=== PATIENT | male | born 1975 | race Caucasian/White ===

== ENCOUNTER 2016-04-17 16:55 | Emergency (ER) | payer SELFPAY ==
--- NOTE | 2016-04-17 17:03 | ER Document Report ---
ED Medical Screen (RME) - General Stated Complaint: TOOTH PAIN Time seen by provider: 17:15 Mode of Arrival: Ambulatory Information source: Patient Notes: 40-year-old male with reoccurring swelling due to dental abscess which started again last night. He was seen recently at [facility] and given clindamycin which seems to be upsetting his stomach. The swelling did go down until it reoccurred last night. There is mild trismus. I have greeted and performed a rapid initial assessment of this patient. A comprehensive ED assessment, evaluation of the patient, analysis of test results , and completion of the medical decision making process will be conducted by additional ED providers. TRAVEL OUTSIDE OF THE [place] IN LAST 30 DAYS: No - Related Data Allergies/Adverse Reactions: Penicillins Allergy (Verified 04/17/16 17:07) Past Medical History Past Surgical History: Reports: Hx Orthopedic Surgery - R KNEE - Immunizations Hx Diphtheria, Pertussis, Tetanus Vaccination: Yes - UTD Physical Exam - Vital signs Vitals: Temp Pulse Resp BP Pulse Ox 98.1 F 81 16 145/91 H 97 04/17/16 17:03 04/17/16 17:03 04/17/16 17:03 04/17/16 17:03 04/17/16 17:03 Course - Vital Signs Vital signs: Temp Pulse Resp BP Pulse Ox 98.1 F 81 16 145/91 H 97 04/17/16 17:03 04/17/16 17:03 04/17/16 17:03 04/17/16 17:03 04/17/16 17:03
[2016-04-17] MEDS ORDERED: ONDANSETRON 4 MG TAB.RAPDIS PO ONE (17:13)
[2016-04-17 17:39] LABS: ABSOLUTE EOSINOPHILS # (AUTO) 0.3 10^3/uL (0.0-0.6); ABSOLUTE LYMPHOCYTES (AUTO) 2.1 10^3/uL (0.5-4.7); ABSOLUTE MONOCYTES (AUTO) 1.2 10^3/uL (0.1-1.4); ABSOLUTE NEUT (AUTO) 11.9 10^3/uL (1.7-8.2); BASOPHILS % (AUTO) 0.2 % (0-2); EOSINOPHILS % (AUTO) 1.9 % (0-6); HEMATOCRIT 39.5 % (37.9-51.0); HEMOGLOBIN 13.5 g/dL (13.5-17.0); LYMPHOCYTES % (AUTO) 13.5 % (13-45); MEAN CORPUSCULAR HEMOGLOBIN 30.3 pg (27.0-33.4); MEAN CORPUSCULAR HGB CONC 34.2 g/dL (32.0-36.0); MEAN CORPUSCULAR VOLUME 89 fl (80-97); MONOCYTES % (AUTO) 7.8 % (3-13); RED BLOOD COUNT 4.47 10^6/uL (4.35-5.55); RED CELL DISTRIBUTION WIDTH 12.7 % (11.5-14.0); SEGMENTED NEUTROPHILS % (AUTO) 76.6 % (42-78); WHITE BLOOD COUNT 15.6 10^3/uL (4.0-10.5)
[2016-04-17 17:56] LABS: ALANINE AMINOTRANSFERASE 27 U/L (21-72); ALBUMIN 4.4 g/dL (3.5-5.0); ALKALINE PHOSPHATASE 58 U/L (38-126); ANION GAP 9 (5-19); ASPARTATE AMINO TRANSFERASE 19 U/L (17-59); BLOOD UREA NITROGEN 16 mg/dL (7-20); CALCIUM 9.9 mg/dL (8.4-10.2); CARBON DIOXIDE 30 mmol/L (22-30); CHLORIDE 102 mmol/L (98-107); CREATININE RESULT 1.07 mg/dL (0.52-1.25); GLUCOSE 112 mg/dL (75-110); POTASSIUM 4.7 mmol/L (3.6-5.0); TOTAL PROTEIN 7.2 g/dL (6.3-8.2)
[2016-04-17] MEDS ORDERED: CLINDAMYCIN 600 MG/D5W RTU 50 ML IV ONE (17:58)
[2016-04-17] MEDS ORDERED: HYDROMORPHONE HCL INJ/PF 2 MG/ML AMPULE IV ONE (17:59)
[2016-04-17] MEDS ORDERED: ONDANSETRON HCL INJ/PF 4 MG/2 ML SDV IV ONE (17:59)
[2016-04-17] MEDS ORDERED: METHYLPREDNISOLONE INJ 125 MG/2 ML SDV IV ONE (17:59)
[2016-04-17] MEDS ORDERED: LIDOCAINE 1%/EPINEPHRINE INJ 20 ML VIAL INJ ONE (18:00)
[2016-04-17] MEDS ORDERED: LIDOCAINE 1% INJ-PF (10 MG/ML) 30 ML SDV ONE (18:43)
--- NOTE | 2016-04-17 19:20 | ER Document Report ---
ED Oral Problem - General Chief Complaint: Toothache Stated Complaint: TOOTH PAIN Mode of Arrival: Ambulatory Notes: Patient has swelling of the left side of his face that began on Tuesday. He was seen at another emergency department on Tuesday where he was given clindamycin 300 mg 4 times a day and hydrocodone for pain. Patient says he's not been able to take the clindamycin as prescribed because it upsets his stomach. He says he's only had one antibiotic pill today and to yesterday. Swelling of the face has worsened today. Has not been running any fever. Has bad teeth. Can swallow without difficulty. Has difficulty completely opening his mouth, however. TRAVEL OUTSIDE OF THE [place] IN LAST 30 DAYS: No - Related Data Allergies/Adverse Reactions: Penicillins Allergy (Verified 04/17/16 17:07) Past Medical History - General Information source: Patient - Social History Smoking Status: Current Every Day Smoker Chew tobacco use (# tins/day): No Frequency of alcohol use: Rare Drug Abuse: None Family History: Reviewed & Not Pertinent Patient has suicidal ideation: No Patient has homicidal ideation: No Surgical Hx: Negative Past Surgical History: Reports: Hx Orthopedic Surgery - R KNEE - Immunizations Hx Diphtheria, Pertussis, Tetanus Vaccination: Yes - UTD Review of Systems - Review of Systems Constitutional: denies: Fever EENT: Mouth pain, Dental problem. denies: Eye pain, Eye discharge, Difficulty swallowing, Throat swelling, Mouth swelling Cardiovascular: denies: Chest pain Respiratory: denies: Cough, Short of breath, Wheezing Physical Exam - Vital signs Vitals: Temp Pulse Resp BP Pulse Ox 98.1 F 81 16 145/91 H 97 04/17/16 17:03 04/17/16 17:03 04/17/16 17:03 04/17/16 17:03 04/17/16 17:03 Interpretation: Normal - Notes Notes: PHYSICAL EXAMINATION: GENERAL: Well-appearing, in no acute distress. Vital signs are all normal. HEAD: Atraumatic, normocephalic. ENT: oropharynx clear without exudates. Moist mucous membranes. Notable swelling of the left side of the face, primarily over the left mandible. Very tender to touch. No drainage present. No impingement upon the airway or oral passage. NECK: Normal range of motion, supple. No soft tissue swelling in the submandibular region. LUNGS: Breath sounds clear and equal bilaterally. HEART: Regular rate and rhythm without murmurs. ABDOMEN: Soft, nontender. No guarding or rebound. BACK: No tenderness throughout entire back. Course - Re-evaluation Re-evalutation: 04/17/16 19:57 I prescribed Phenergan so the patient did take it in advance of his clindamycin and keep the clindamycin down. I encouraged him to try to get 4 pills in a day for at least a week. I also gave him prescription for Percocet to take instead of the hydrocodone which might be better tolerated on his stomach as well. I advised the patient to apply an ice pack is much as possible over the next day or 2. I want him to come back tomorrow if his face is worse, which I don't expect. Otherwise, he will need to follow-up with a dentist regarding his multiple bad teeth. - Vital Signs Vital signs: Temp Pulse Resp BP Pulse Ox 99 F 80 16 136/78 H 97 04/17/16 19:33 04/17/16 19:33 04/17/16 19:33 04/17/16 19:33 04/17/16 19:33 - Laboratory Result Diagrams: 04/17/16 17:15 04/17/16 17:15 Laboratory results interpreted by me: 04/17/16 04/17/16 17:15 17:15 WBC 15.6 H Absolute Neutrophils 11.9 H Glucose 112 H Procedures - Incision and Drainage Left Lower Face Type: Simple Anesthetic type: 1% Lidocaine mL's of anesthetic: 0 Incision Method: Incision made with needle Amount/type of drainage: 10 mL of pus Notes: 04/17/16 19:55 A couple of stab incisions in the fluctuant area of the sulcus adjacent to the posterior molars on the left with an 18-gauge needle produced a couple of holes through which pus began to come out freely. With gentle compression around the face and gingiva, I was able to express a total of about 10 mL of pus. Swelling of the face was noticeably decreased in better. Patient says he feels "a whole lot better". Discharge - Discharge Clinical Impression: Dental abscess Condition: Stable Disposition: HOME, SELF-CARE Additional Instructions: Dental Infection or Abscess: You have an infection, perhaps an abscess (pus formation) of the gum around one of your teeth, which is probably decayed. If there is an abscess, it may drain on its own or it may need to be opened or lanced. Severe swelling or drainage around a tooth usually means a deep dental abscess which usually requires evaluation and treatment by a dentist or oral surgeon. Antibiotics may be prescribed while awaiting dental treatment. If you develop high fever with chills, worsening pain, or increasing swelling in the area, see a dentist or oral surgeon immediately or return to the Emergency Department immediately. ABSCESS: You have an abscess (boil). This a pus-forming infection, usually due to staph. Some boils may be left to drain on their own, but most require lancing. From the time the tender lump first appears, it may be three or four days before the abscess is ready to arm[place]. Local heat and rest help at this stage of treatment. An antibiotic may prevent spread of the infection. Once the abscess is opened, packing may be placed into it. This is done so pus is not sealed inside by premature closure of the cavity. The packing will be removed at your follow-up visit or you may be advised to remove it yourself at home. Sometimes this packing must be replaced a few times during healing. The wound will heal with surprisingly little scar. Depending on the size and location of an abscess, healing can take one to four weeks. You may shower and wash the area around the incision site two or three times a day. Antibiotics may be prescribed, but are usually not necessary after an abscess has been drained. If you develop fever, chills, worsening pain, or increasing swelling in the area, call the doctor or return immediately. POST INCISION AND DRAINAGE: You have had an incision made to allow drainage of an abscess. The incision must remain open so that pus and debris can drain from the wound. If the abscess cavity is large, packing is placed. This keeps the tissues from collapsing and trapping pus inside, while the body shrinks the cavity. The packing may need to be replaced every day or two. The physician will instruct you on the packing. Keep a bulky dressing over the area. Replace it if it becomes saturated with blood or pus. Do not disturb the packing (if present). You may shower and cleanse the area with gentle soap and warm water two or three times a day. Local warmth may be soothing, and may promote faster healing. Return if you develop high fever or chills, or if you note spreading redness, increasing swelling, or increasing tenderness. Ice Packs Apply ice packs frequently against the painful area frequently over the next couple of days.. The ice should be applied over the wrap, tape, or splint, or over a layer of cloth -- not directly against the skin. Some ice bags have a built-in cloth and can be put directly on the skin. ORAL NARCOTIC MEDICATION: You have been given a prescription for pain control. This medication is a narcotic. It's best taken with food, as nausea can result if taken on an empty stomach. Don't operate machinery or drive within six hours of taking this medication. Do not combine this medicine with alcohol, or with any medication which can cause sedation (such as cold tablets or sleeping pills) unless you get permission from the physician. Narcotics tend to cause constipation. If possible, drink plenty of fluids and eat a diet high in fiber and fruits. Antinausea Medication You have been given a medication to suppress nausea and vomiting. This type of medication can be given as a shot, pill, or suppository. It will usually last for many hours. Pills and shots usually last six to eight hours, suppositories last about 12 hours. For the typical illness, only one or two doses of the medication may be necessary. Mild lightheadedness may occur. This type of medicine can cause drowsiness. Do not drive or operate dangerous machinery while under its influence. Do not mix with alcohol. See your doctor at once if you have muscle spasms or tightness, or uncontrollable motions (particularly of the neck, mouth, or jaw). Persistent vomiting or severe lightheadedness should also be evaluated by the physician. Keep taking your Clindamycin, as prescribed You have been given a prescription for the antibiotic clindamycin. It is often prescribed for infections in the mouth, such as dental infections or abscesses, and for skin infections due to MRSA. It's important that you take all the medication, unless instructed otherwise by your physician. Failure to complete the entire course can result in relapse of your condition. Common side effects of antibiotics include nausea, intestinal cramping, or diarrhea. Women may develop vaginal yeast infections, and babies can get yeast (thrush) in the mouth following the use of antibiotics. Contact your physician if you develop significant side effects from this medication. Allergy to this antibiotic can result in hives, wheezing, faintness, or itching. If symptoms of allergy occur, stop the medication and call the doctor. You need some dental work to remove some of your bed teeth. FOLLOW-UP CARE: Most simple abscesses will not require a follow up visit. If you had packing placed in the abscess, remove it as instructed by the physician. If you have been referred to a physician for follow-up care, call the physicians office for an appointment as you were instructed or within the next two days. If you experience worsening or a significant change in your symptoms, return to the Emergency Department at any time for re-evaluation. Return for reevaluation if your swelling and pain has worsened tomorrow morning. Prescriptions: Oxycodone HCl/Acetaminophen [Percocet 5-325 mg Tablet] 1 - 2 tab PO Q4HP PRN # 20 tablet PRN Reason: Promethazine HCl [Phenergan 25 mg Tablet] 1 - 2 tab PO Q6HP PRN #20 tablet PRN Reason:
[2016-04-17 19:39] VITALS: BP 136/78
== END 2016-04-17 19:34 | disposition home or self-care (01) ==
LOC: ER 16:55
PROC: 0C96XZZ Drainage of Lower Gingiva, External Approach (ICD-10-PCS; principal; 2016-04-17)
DX: K04.7 Periapical abscess without sinus (principal); R22.0 Localized swelling, mass and lump, head; F17.200 Nicotine dependence, unspecified, uncomplicated
CPT/HCPCS: 99283; 96375; 96365; 36415; 85025; 80053; 41800; S0119; J3490; J2930; J1170; J2405

== ENCOUNTER 2017-01-01 16:13 | Emergency (ER) | payer SELFPAY ==
--- NOTE | 2017-01-01 18:06 | ER Document Report ---
ED Oral Problem - General Chief Complaint: Toothache Stated Complaint: TOOTHACHE Time Seen by Provider: 01/01/17 17:39 Mode of Arrival: Ambulatory Information source: Patient, Relative Notes: Patient is a 41-year-old male comes emergency room complaining of dental pain. Patient has a history of having dental abscess is the most recent was about 6-8 months ago here. This was on the left back lower molar with left facial swelling. Patient states that the active tooth is been going on for about 2 days and just started swelling tonight. The last time patient was here he almost had to have an admission secondary to the swelling. He was able to get by with antibiotics and a I&D here. Patients back early this time because the swelling has not gotten out of control requesting intervention and check to see if it needs an I&D. TRAVEL OUTSIDE OF THE [place] IN LAST 30 DAYS: No - HPI Patient complains to provider of: Swelling of face, Swelling of jaw, Toothache Onset: Other - 2 days ago Onset: Gradual Quality of pain: Sharp, Stabbing, Throbbing Severity: Moderate Pain Level: 3 Context: Fractured tooth Swollen jaw/face: Mild Associated symptoms: Facial pain. denies: None, Chills, Cough, Decreased appetite, Dental decay, Difficulty speaking, Drainage, Drooling, Earache, Fever , Headache, Jaw pain, Short of breath, Sweaty, Toothache, Tongue swelling, Unable to swallow, White patches in mouth, Other Worsened by: Other - Heat cold and air Relieved by: Nothing Similar symptoms previously: Yes Recently seen / treated by doctor/dentist: No - Related Data Allergies/Adverse Reactions: Penicillins Allergy (Verified 01/01/17 16:19) Past Medical History - General Information source: Patient, Relative - Social History Smoking Status: Current Every Day Smoker Cigarette use (# per day): Yes - Half-pack Chew tobacco use (# tins/day): No Smoking Education Provided: Yes Frequency of alcohol use: None Drug Abuse: None Lives with: Family Family History: Reviewed & Not Pertinent Patient has suicidal ideation: No Patient has homicidal ideation: No Renal/ Medical History: Denies: Hx Peritoneal Dialysis Past Surgical History: Reports: Hx Orthopedic Surgery - R KNEE - Immunizations Hx Diphtheria, Pertussis, Tetanus Vaccination: Yes - UTD Review of Systems - Review of Systems Constitutional: No symptoms reported EENT: Dental problem Cardiovascular: No symptoms reported Respiratory: No symptoms reported Gastrointestinal: No symptoms reported Genitourinary: No symptoms reported Male Genitourinary: No symptoms reported Musculoskeletal: No symptoms reported Skin: No symptoms reported Hematologic/Lymphatic: No symptoms reported Neurological/Psychological: No symptoms reported -: Yes All other systems reviewed and negative Physical Exam - Vital signs Vitals: Temp Pulse Resp BP Pulse Ox 98.5 F 77 16 128/80 H 98 01/01/17 16:19 01/01/17 16:19 01/01/17 16:19 01/01/17 16:19 01/01/17 16:19 Interpretation: Hypertensive - General General appearance: Other - Obvious pain and discomfort In distress: Mild - HEENT Head: Normocephalic, Other - Examination patient's external feature shows that he does have some mild swelling on the left jawline. There is no fluctuance no induration noted at this time feels mostly like inflamed tissue with no abscess present currently. External canal: Normal Sinus: Normal Nasal: Normal Mouth/Lips: Caries, Dental fracture, Other - Physical examination patient's oral cavity shows severe dental decay throughout. Patient's current to his back left lower molar and the second to last molar are both a severe decay with holes in both and large portion of the tooth enamel is down to gumline. There is some height remaining to the anterior second left tooth the tooth #18. Palpation of the tooth themselves shows tenderness to the palpation of the 17th and 18th. Running along the gumline or does not feel to be any abscess and there is no noted discharge coming from the tooth gumline. Mucous membranes: Moist Pharynx: No: Normal, Blood in hypopharynx, Erythema, Exudate, Peritonsillar abscess, Post nasal drainage, Retropharyngeal abscess, Tonsillar hypertrophy, Uvular edema, Potential airway comprom., Other Neck: Normal - Respiratory Respiratory status: No respiratory distress Breath sounds: Normal Chest palpation: Normal - Cardiovascular Rhythm: Regular Heart sounds: Normal auscultation Murmur: No - Neurological Neuro grossly intact: Yes Cognition: Normal Orientation: AAOx4 [place] Coma Scale Eye Opening: Spontaneous Niko Coma Scale Verbal: Oriented [place] Coma Scale Motor: Obeys Commands [place] Coma Scale Total: 15 Speech: Normal Course - Vital Signs Vital signs: Temp Pulse Resp BP Pulse Ox 98.5 F 77 16 128/80 H 98 01/01/17 16:19 01/01/17 16:19 01/01/17 16:19 01/01/17 16:19 01/01/17 16:19 - Transfer of Care Notes: 01/01/17 18:07 At this time I do not believe it is necessary to do blood work or to attempt any kind of an I&D. It is feeling more like inflamed tissue than it does to be an abscess. The PO2 back teeth are both in severe decay as well as limited amount of tooth left on each side. At this point patient really does not want any intervention to the point of an I&D or even a dental block. Patient has a history of having dental problems and has received medications in the past and seemed to work. Patient stated that the clindamycin did bother his stomach and had lots of vomiting even with the Phenergan but he managed to use all of it. This time will try doxycycline and will also give some Phenergan along with it. Patient has been informed that if the swelling gets worse or if he has trouble with his secretions or any concerns at all to return at once to ER for recheck and not to be stubborn and wait until is too late. Patient's mother and daughter both agreed he will return if he has any problems. Discharge - Discharge Clinical Impression: Dental abscess, Pain, dental Condition: Good Disposition: HOME, SELF-CARE Instructions: Abscess ([facility]), [facility], Toothache ([facility]) Additional Instructions: Home rest. Medications prescribed. Take all of the antibiotic please. Should you have any concerns if the tooth gets worse and get to vomiting if the swelling in the face gets worse or the pain is uncontrolled return to ER once for recheck. If all is going well highly recommend that you very much follow- up with a primary care or a dentist to help get these teeth under control and out of harm's way. Prescriptions: Doxycycline Hyclate 100 mg PO BID #20 capsule Oxycodone HCl/Acetaminophen [Percocet 5-325 mg Tablet] 1 tab PO Q4H PRN #15 tablet PRN Reason:
[2017-01-01 18:35] VITALS: BP 147/94
== END 2017-01-01 18:32 | disposition home or self-care (01) ==
LOC: ER 16:13
DX: K04.7 Periapical abscess without sinus (principal); F17.210 Nicotine dependence, cigarettes, uncomplicated; Z88.0 Allergy status to penicillin
CPT/HCPCS: 99282

== ENCOUNTER 2017-02-24 17:55 | Emergency (ER) | payer SELFPAY ==
[2017-02-24 18:09] VITALS: BP 131/84
[2017-02-24] MEDS ORDERED: DOXYCYCLINE HYCLATE 100 MG TABLET PO ONE (18:57)
--- NOTE | 2017-02-24 19:01 | ER Document Report ---
HPI - HPI Patient complains to provider of: Dental pain Onset: Yesterday Onset/Duration: Gradual Quality of pain: Achy Pain Level: 2 Context: Patient presents complaining of dental pain that started yesterday. Patient complains of swelling to left lower jaw. Patient denies any fever Associated Symptoms: Other - Dental infection. denies: Fever Exacerbated by: Denies Relieved by: Denies Similar symptoms previously: Yes Recently seen / treated by doctor: No - ROS ROS below otherwise negative: Yes Systems Reviewed and Negative: Yes All other systems reviewed and negative - CONSTITUTIONAL Constitutional: DENIES: Fever, Chills - EENT Notes: Dental infection - GASTROINTESTINAL Gastrointestinal: DENIES: Nausea, Patient vomiting - REPRODUCTIVE Reproductive: DENIES: : - MUSCULOSKELETAL Musculoskeletal: DENIES: Back Pain, Neck Pain - DERM Skin Color: Normal Skin Problems: None Past Medical History - General Information source: Patient - Social History Smoking Status: Current Every Day Smoker Smoking Education Provided: Yes Frequency of alcohol use: Occasional Drug Abuse: None 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 IN LAST 30 DAYS: No - HEENT HEENT: Atraumatic, Normocephalic. negative: Pharyngeal Exudate, Pharyngeal Tenderness, Pharyngeal Erythema, Tympanic Membrane Red, Tympanic Membrane Bulging Mouth Diagram: 1 - Dental caries, fracture, gingival inflammation, no drainable abscess, no trismus Notes: Subtle swelling over left mandible - NECK Neck: Normal Inspection, Supple. negative: Lymphadenopathy-Left, Lymphadenopathy-Right - RESPIRATORY Respiratory: Breath Sounds Normal, No Respiratory Distress O2 Sat by Pulse Oximetry: 97 - CARDIOVASCULAR Cardiovascular: Regular Rate, Regular Rhythm - BACK Back: Normal Inspection - MUSCULOSKELETAL/EXTREMETIES Musculoskeletal/Extremeties: MAEW - NEURO Level of Consciousness: Awake, Alert, Appropriate Motor/Sensory: No Motor Deficit - DERM Integumentary: Warm, Dry, No Rash Course - Re-evaluation Re-evalutation: 02/24/17 18:58 Controlled substance database reviewed Patient encouraged to follow-up with dental care provider for further management. Patient advised that emergency department does not manage chronic painful conditions 02/24/17 19:01 Smoking cessation handout provided to patient - Vital Signs Vital signs: Temp Pulse Resp BP Pulse Ox 99.1 F 81 16 131/84 H 97 02/24/17 18:07 02/24/17 18:07 02/24/17 18:07 02/24/17 18:07 02/24/17 18:07 Discharge - Discharge Clinical Impression: Infected dental caries Condition: Stable Disposition: HOME, SELF-CARE Instructions: Doxycycline ([facility]), Oral Narcotic Medication ([facility]), Toothache ([facility] ) Additional Instructions: Return immediately for any new or worsening symptoms Followup with your primary care provider, call tomorrow to make a followup appointment Prescriptions: Acetaminophen with Codeine [Acetaminophen-Cod #3 Tablet] 1 each PO Q6 PRN #15 tablet PRN Reason: Doxycycline Hyclate 100 mg PO BID #20 capsule Naproxen [Naprosyn 250 Nmg Tablet] 1 tab PO BID #14 tablet Forms: Smoking Cessation Education Referrals: [facility] [Provider Group] - Follow up tomorrow
== END 2017-02-24 19:07 | disposition home or self-care (01) ==
LOC: ER 17:55
DX: K02.9 Dental caries, unspecified (principal); F17.200 Nicotine dependence, unspecified, uncomplicated
CPT/HCPCS: 99282

== ENCOUNTER 2019-03-19 17:37 | Emergency (ER) | payer SELFPAY | END 2019-03-19 22:11 | disposition left against medical advice (07) | LOC: ER 17:37 | DX: Z53.21 Procedure and treatment not carried out due to patient leaving prior to being seen by health care provider (principal) ==